=== PATIENT | female | born 1965 | race Asian ===

== ENCOUNTER 2019-05-05 08:06 | Emergency (ER) | payer OTHER ==
[2019-05-05 08:16] VITALS: BP 142/74
--- NOTE | 2019-05-05 08:25 | ED Physician Documentation ---
History of Present Illness - Stated complaint Stated Complaint: COUGH - Chief complaint Chief Complaint: Heent - Additonal information Additional information: This is a 54-year-old female with a history of hypertension who presents with cough ongoing for the last week. She developed sinus congestion and cough 1 week ago, this is progressed and now she is coughing up green sputum. She states that she has some generalized chest soreness after coughing, but no chest pain. She has some mild discomfort in her upper nose. Her breathing feels a bit heavy at times but does improve when she coughs, and she does not feel short of breath. She has not had any hemoptysis. Review of Systems Ears: denies: Ear pain Nose: reports: Rhinorrhea / runny nose Respiratory: reports: Cough. denies: Dyspnea GI: denies: Vomiting PD PAST MEDICAL HISTORY - Past Medical History Cardiovascular: Hypertension, Murmur, Other Respiratory: None Endocrine/Autoimmune: None GI: None POULTRY SCALDER: None, Other : None HEENT: None Psych: None Musculoskeletal: None Derm: None - Past Surgical History Past Surgical History: No /POULTRY SCALDER: LEEP (Cervical surgery) - Present Medications Home Medications: Ambulatory Orders Medication Instructions Recorded Confirmed atenoloL [Atenolol] 25 mg ORAL DAILY 11/10/13 05/27/14 Nitrofurantoin Monohyd/M-Cryst 1 tab PO BID 5 Days capsule 11/11/15 [Macrobid 100 mg Capsule] Phenazopyridine HCl [Pyridium] 200 mg PO TID #6 tablet 11/11/15 Benzonatate [Tessalon Perle] 100 - 200 mg PO TID PRN #30 capsule 05/05/19 - Allergies Allergies/Adverse Reactions: Allergies Allergy/AdvReac Type Severity Reaction Status Date / Time ondansetron HCl * Allergy Rash Verified 05/05/19 08:16 [From Zofran (as hydrochloride)] - Social History Does the pt smoke?: No Smoking Status: Never smoker Does the pt drink ETOH?: No Does the pt have substance abuse?: No - Immunizations Immunizations are current?: Yes - POLST Patient has POLST: No PD ED PE NORMAL - Vitals Vital signs reviewed: Yes - General General: Alert and oriented X 3, No acute distress - HEENT HEENT: Atraumatic, PERRL, Ears normal, Other (Posterior pharynx erythema, no exudate) - Neck Neck: Supple, no meningeal sign - Cardiac Cardiac: RRR - Respiratory Respiratory: No respiratory distress, Clear bilaterally - Abdomen Abdomen: Soft, Non tender, Non distended - Derm Derm: Warm and dry - Extremities Extremities: No deformity - Neuro Neuro: Alert and oriented X 3 - Psych Psych: Normal mood, Normal affect Results - Vitals Vitals: Vital Signs - 24 hr 05/05/19 08:13 Temperature 35.5 C L Heart Rate 67 Respiratory 16 Rate Blood Pressure 142/74 H O2 Saturation 100 Oxygen O2 Source Room air - Labs Labs: Laboratory Tests 05/05/19 08:45 Group A Strep Rapid Negative - Rads (name of study) CXR Radiology: Other (Normal 2 view chest) PD MEDICAL DECISION MAKING - ED course Complexity details: considered differential (URI, PNA, bronchitis, PTX, sinusitis, strep) ED course: Pt is non-toxic appearing on exam, vitals unremarkable. She has an intermittent cough but her lungs are clear and her O2 saturation is excellent. Her CXR is normal, she has no signs of otitis media, bacterial sinusitis, and her rapid strep is negative. I do not see signs of a bacterial infection needing abx today, and her symptoms and their duration is most consistent with a viral process. She was given dexamethasone for her sore throat, and I discussed supportive care and PCP follow up and return precautions and patient was discharged home. Departure - Departure Disposition: 01 Home, Self Care Clinical Impression: Viral URI with cough Condition: Good Instructions: ED Viral Syndrome Follow-Up: Jayda Whipple MD [Primary Care Provider] - Prescriptions: Benzonatate [Tessalon Perle] 100 - 200 mg PO TID PRN #30 capsule PRN Reason: Cough Comments: We do not see signs of pneumonia on your chest x-ray today. Your rapid strep is negative. I think your symptoms are likely due to a virus, the symptoms can persist for 10 days. Please try the Tessalon Perles for your cough, get plenty of rest, drink fluids, you may try [id number] cold relief medications or Tylenol and ibuprofen Discharge Date/Time: 05/05/19 09:48
[2019-05-05 09:05] LABS: RAPID STREP SCREEN Negative (Negative)
--- NOTE | 2019-05-05 09:26 | XRAY Report ---
Reason: Persistent cough Procedure Date: 05/05/2019 Accession Number: [id number] / [id number] Procedure: XR - Chest 2 View X-Ray CPT Code: 03486 Final Report FULL RESULT: EXAM: CHEST RADIOGRAPHY EXAM DATE: 05/05/2019 08:58 AM. CLINICAL HISTORY: Persistent cough. COMPARISON: None. TECHNIQUE: 2 views. FINDINGS: Lungs/Pleura: No focal opacities evident. No pleural effusion. No pneumothorax. Normal volumes. Mediastinum: Heart and mediastinal contours are unremarkable. Other: None. IMPRESSION: Normal 2-view chest radiography. RADIA
[2019-05-05] MEDS ORDERED: DEXAMETHASONE 10 MG/ML VIAL PO STA (09:31)
[2019-05-05] MEDS ORDERED: CHERRY SYRUP 10 ML UDC PO ONE (09:31)
== END 2019-05-05 09:48 | disposition home or self-care (01) ==
LOC: ED 08:06
DX: J06.9 Acute upper respiratory infection, unspecified (principal); I10 Essential (primary) hypertension
CPT/HCPCS: 71046; 87070; 87430; 99284; A9270

== ENCOUNTER 2023-10-08 11:41 | Emergency (ER) | payer OTHER ==
[2023-10-08 11:54] VITALS: BP 148/81; O2SAT 99
--- NOTE | 2023-10-08 12:04 | ED Physician Documentation ---
PD HPI URI - Stated complaint Stated Complaint: COUGH,CHEST PX - Chief complaint Chief Complaint: Resp - History obtained from History obtained from: Patient - History of Present Illness Timing - onset: How many days ago (3) Timing duration: Days (3) Timing details: Gradual onset Associated symptoms: Nasal congestion, Rhinorrhea, Dry cough, Chest pain (states chest hurts when she coughs only). No: Fever, Chills, Dyspnea Contributing factors: Sick contact Improves by: Rest Worsened by: Activity Similar symptoms before: Diagnosis (states feels like her prior "colds") Recently seen: Not recently seen Review of Systems Constitutional: denies: Fever, Chills GI: denies: Vomiting, Diarrhea Skin: denies: Rash Musculoskeletal: denies: Neck pain, Back pain Neurologic: denies: Headache PD PAST MEDICAL HISTORY - Past Medical History Cardiovascular: Hypertension, Murmur, Other Respiratory: None Endocrine/Autoimmune: None GI: None RAND CEMENTER: None, Other : None HEENT: None Psych: None Musculoskeletal: None Derm: None - Past Surgical History Past Surgical History: No /RAND CEMENTER: LEEP (Cervical surgery) - Present Medications Home Medications: Ambulatory Orders Medication Instructions Recorded Confirmed atenoloL [Atenolol] 25 mg ORAL DAILY 11/10/13 05/27/14 Nitrofurantoin Monohyd/M-Cryst 1 tab PO BID 5 Days capsule 11/11/15 [Macrobid 100 mg Capsule] Phenazopyridine HCl [Pyridium] 200 mg PO TID #6 tablet 11/11/15 Benzonatate [Tessalon Perle] 100 - 200 mg PO TID PRN #30 capsule 05/05/19 Benzonatate [Tessalon] 200 mg PO TID PRN #30 cap 10/08/23 Cetirizine HCl/Pseudoephedrine 1 tab PO BID PRN #20 tab 10/08/23 [Zyrtec-D ER 5 mg-120 mg Tablet] - Allergies Allergies/Adverse Reactions: Allergies Allergy/AdvReac Type Severity Reaction Status Date / Time ondansetron HCl * Allergy Rash Verified 10/08/23 11:46 [From Zofran (as hydrochloride)] - Social History Does the pt smoke?: No Smoking Status: Never smoker Does the pt drink ETOH?: No Does the pt have substance abuse?: No - Immunizations Immunizations are current?: Yes - POLST Patient has POLST: No PD ED PE NORMAL - Vitals Vital signs reviewed: Yes - General General: Alert and oriented X 3, No acute distress, Well developed/nourished - HEENT HEENT: PERRL, Moist mucous membranes, Pharynx benign - Neck Neck: Supple, no meningeal sign - Cardiac Cardiac: RRR, No murmur, Strong equal pulses - Respiratory Respiratory: No respiratory distress, Clear bilaterally - Abdomen Abdomen: Soft, Non tender, Non distended - Derm Derm: Warm and dry - Neuro Neuro: Alert and oriented X 3 - Psych Psych: Normal mood, Normal affect Results - Vitals Vitals: Vital Signs - 24 hr 10/08/23 11:46 Temperature 36.5 C Heart Rate 63 Respiratory 16 Rate Blood Pressure 148/81 H O2 Saturation 99 Oxygen O2 Source Room air - Rads (name of study) cxr Relevant Findings:: Final report received, See rad report PD Medical Decision Making - ED course Complexity details: reviewed results, re-evaluated patient, considered differential, d/w patient ED course: No acute abnormalities on chest x-ray. No hypoxia. No respiratory distress. No fever. Patient is very well-appearing, nontoxic. Appears to have a viral syndrome. Will continue supportive care and place her on cough medication and decongestants for home. No indication for antibiotics or further testing at this time. Patient counseled regarding signs and symptoms for which I believe and urgent re-evaluation would be necessary. Patient with good understanding of and agreement to plan and is comfortable going home at this time This document was made in part using voice recognition software. While efforts are made to proofread this document, sound alike and grammatical errors may occur. Departure - Departure Disposition: 01 Home, Self Care Clinical Impression: Viral URI with cough Condition: Good Instructions: ED Viral Syndrome Follow-Up: your,doctor in 1 week if not better [Other] Prescriptions: Benzonatate [Tessalon] 200 mg PO TID PRN #30 cap PRN Reason: Cough Cetirizine HCl/Pseudoephedrine [Zyrtec-D ER 5 mg-120 mg Tablet] 1 tab PO BID PRN #20 tab PRN Reason: nasal congestion Comments: Your prescriptions were sent to [email or web address] in [place]. You can use the medication as needed to help with cough and congestion. Your x-ray does not show any signs of pneumonia. This is a viral illness that should resolve on its own over the next 2 weeks. You can use Motrin or Tylenol as needed for any pain. Forms: PCP List Discharge Date/Time: 10/08/23 12:52
--- NOTE | 2023-10-08 12:45 | XRAY Report ---
PROCEDURE: Chest 2V INDICATIONS: cough TECHNIQUE: 2 views of the chest were acquired. COMPARISON: 05/05/2019 FINDINGS: Surgical changes and devices: None. Lungs and pleura: No pleural effusions or pneumothorax. Lungs are clear. Mediastinum: The aorta is prominent and tortuous. The cardiac contours are within normal limits. Bones and chest wall: No suspicious bony lesions. Age-appropriate degenerative changes are seen. Overlying soft tissues appear unremarkable. IMPRESSION: No acute cardiopulmonary process. No focal infiltrates are seen. Reviewed by: Paul Gama MD on 10/08/2023 11:43 AM GIANNA Approved by: Paul Gama MD on 10/08/2023 11:43 AM GIANNA Station ID: [id number]
== END 2023-10-08 12:52 | disposition home or self-care (01) ==
LOC: ED 11:41
DX: J06.9 Acute upper respiratory infection, unspecified (principal); I10 Essential (primary) hypertension; Z79.899 Other long term (current) drug therapy
CPT/HCPCS: 99283